=== PATIENT | female | born 1980 | race Caucasian/White ===

== ENCOUNTER 2016-08-26 20:43 | Emergency (ER) | payer SELFPAY ==
[~2016-08-26] VITALS: Ht 162.6 cm; Wt 65.8 kg
[~2016-08-26 20:43] MED LIST: CIPR500T94 PO; CLON0.2T PO; CODE1CAP19 PO; CYCL10TA2 PO; DICY20TA30 PO; DOCU-27 PO; ONDA4TAB7 PO; OXCA600T3 PO; POLY17PO5 PO; PRAZ2CAP2 PO; PROM25TA10 PO
[2016-08-26] MEDS ORDERED: IV NORMAL SALINE 1000ML BAG 1,000 ML IV SCH (21:29)
--- NOTE | 2016-08-26 21:36 | PHYS DOC ---
Past Medical History Past Medical History: Bipolar, Migraines Additional Past Medical Histor: endometriosis,E-COLI,BORDERLINE DM; PAST IV DRUG ABUSE Past Surgical History: No Surgical History Additional Past Surgical Histo: SEVERAL LAPAROSCOPIES FROM EDOMETRIOSIS Alcohol Use: Occasionally Drug Use: None Adult General Chief Complaint Chief Complaint: HEADACHE HPI HPI Patient is a 36 year old female who presents with complaint of headache, nausea , and body aches. Patient states that her symptoms started earlier today with a headache which is consistent with previous headaches associated with migraine. Patient states that she currently is taking Fioricet at home as outpatient to help control her headaches, however she states that this has not been keeping her headaches under good control. The patient states that earlier today she went to a restaurant where she consumed half of a Ryann and ate dinner. Patient states shortly after she started getting nausea, chills, and body aches. Patient states that these symptoms are not typical of her migraine headaches. The patient denies any unilateral symptoms, difficulty with speech or swallowing, or loss of vision. Patient states that she feels febrile. Patient took ibuprofen prior to arrival in the emergency department with minimal improvement in her headache. Patient rates her pain as 10 out of 10. Review of Systems Review of Systems Constitutional: Subjective fever, chills [] Eyes: Denies change in visual acuity, redness, or eye pain [] HENT: Denies nasal congestion or sore throat [] Respiratory: Denies cough or shortness of breath [] Cardiovascular: Denies chest pain or edema [] GI: Nausea, denies abdominal pain, vomiting, bloody stools or diarrhea [] : Denies dysuria or hematuria [] Musculoskeletal: Body aches, Denies back pain or joint pain [] Integument: Denies rash or skin lesions [] Neurologic: Headache, denies focal weakness or sensory changes [] Endocrine: Denies polyuria or polydipsia [] Current Medications Current Medications Current Medications Medications (Trade) Dose Ordered Sig/Melinda Start Time Stop Time Status Last Admin Dose Admin Diphenhydramine HCl (Benadryl) 25 mg 1X ONCE 08/26/16 21:45 08/26/16 21:46 DC 08/26/16 21:57 25 MG Ketorolac Tromethamine (Toradol) 30 mg 1X ONCE 08/26/16 21:45 08/26/16 21:46 DC 08/26/16 21:58 30 MG Oxcarbazepine (Trileptal) 600 mg 1X ONCE 08/26/16 22:30 08/26/16 22:31 DC 08/26/16 22:27 600 MG Prochlorperazine Edisylate (Compazine) 10 mg 1X ONCE 08/26/16 21:45 08/26/16 21:46 DC 08/26/16 21:57 10 MG Sodium Chloride (Iv Sodium Chloride 0.9% 1000ml Bag) 1,000 ml @ 1,000 mls/hr Q1H 08/26/16 21:29 08/26/16 22:28 DC 08/26/16 21:58 1,000 MLS/HR Allergies Allergies Allergies Coded Allergies Type Severity Reaction Last Updated Verified Iodine and Iodide Containing Produc Allergy Intermediate hives 03/14/16 Yes Penicillins Allergy Intermediate 03/14/16 Yes shellfish derived Allergy Intermediate hives 03/14/16 Yes sulfamethoxazole Allergy Intermediate 03/14/16 Yes trimethoprim Allergy Intermediate 03/14/16 Yes Physical Exam Physical Exam Constitutional: Well developed, well nourished, no acute distress, non-toxic appearance. [] HENT: Normocephalic, atraumatic, bilateral external ears normal, oropharynx moist, no oral exudates, nose normal. [] Eyes: PERRLA, EOMI, conjunctiva normal, no discharge. [] Neck: Normal range of motion, no tenderness, supple, no stridor. [] Cardiovascular:Heart rate regular rhythm, no murmur [] Lungs & Thorax: Bilateral breath sounds clear to auscultation [] Abdomen: Bowel sounds normal, soft, no tenderness, no masses, no pulsatile masses. [] Skin: Warm, dry, no erythema, no rash. [] Back: No tenderness, no CVA tenderness. [] Extremities: No tenderness, no cyanosis, no clubbing, ROM intact, no edema. [] Neurologic: Alert and oriented X 3, normal motor function, normal sensory function, no focal deficits noted. [] Psychologic: Affect normal, judgement normal, mood normal. [] Current Patient Data Vital Signs Vital Signs Date Time Temp Pulse Resp B/P Pulse Ox O2 Delivery O2 Flow Rate FiO2 08/26/16 21:03 98.7 93 16 125/72 99 Room Air 98.7 Lab Values Laboratory Tests Test 08/26/16 20:55 08/26/16 21:52 Urine Collection Type Unknown Urine Color Yellow Urine Clarity Clear Urine pH 6.0 Urine Specific [place] 1.020 Urine Protein Negativemg/dL (NEG-TRACE) Urine Glucose (UA) Negativemg/dL (NEG) Urine Ketones (Stick) Tracemg/dL (NEG) Urine Blood Negative (NEG) Urine Nitrite Negative (NEG) Urine Bilirubin Negative (NEG) Urine Urobilinogen Dipstick 0.2mg/dL (0.2 mg/dL) Urine Leukocyte Esterase Negative (NEG) Urine RBC 0/HPF (0-2) Urine WBC Occ/HPF (0-4) Urine Squamous Epithelial Cells Few/LPF Urine Bacteria 0/HPF (0-FEW) Urine Mucus Slight/LPF Urine Test Negative (NEG) White Blood Count 8.4x10^3/uL (4.0-11.0) Red Blood Count 3.71x10^6/uL (3.50-5.40) Hemoglobin 12.0g/dL (12.0-15.5) Hematocrit 34.2% (36.0-47.0) L Mean Corpuscular Volume 92fL (79-100) Mean Corpuscular Hemoglobin 32pg (25-35) Mean Corpuscular Hemoglobin Concent 35g/dL (31-37) Red Cell Distribution Width 13.1% (11.5-14.5) Platelet Count 251x10^3/uL (140-400) Neutrophils (%) (Auto) 47% (31-73) Lymphocytes (%) (Auto) 43% (24-48) Monocytes (%) (Auto) 5% (0-9) Eosinophils (%) (Auto) 4% (0-3) H Basophils (%) (Auto) 1% (0-3) Neutrophils # (Auto) 4.0x10^3uL (1.8-7.7) Lymphocytes # (Auto) 3.6x10^3/uL (1.0-4.8) Monocytes # (Auto) 0.5x10^3/uL (0.0-1.1) Eosinophils # (Auto) 0.3x10^3/uL (0.0-0.7) Basophils # (Auto) 0.1x10^3/uL (0.0-0.2) Sodium Level 134mmol/L (136-145) L Potassium Level 3.8mmol/L (3.5-5.1) Chloride Level 100mmol/L (98-107) Carbon Dioxide Level 22mmol/L (21-32) Anion Gap 12 (6-14) Blood Urea Nitrogen 14mg/dL (7-20) Creatinine 0.7mg/dL (0.6-1.0) Estimated GFR (Cockcroft-Gault) 94.2 Glucose Level 117mg/dL (70-99) H Calcium Level 7.9mg/dL (8.5-10.1) L Magnesium Level 1.8mg/dL (1.8-2.4) Influenza Type A Antigen Negative (NEGATIVE) Influenza Type B Antigen Negative (NEGATIVE) Laboratory Tests 08/26/16 21:52 Laboratory Tests 08/26/16 21:52 EKG EKG Not performed [] Radiology/Procedures Radiology/Procedures Not performed [] Course & Med Decision Making Course & Med Decision Making Pertinent Labs and Imaging studies reviewed. (See chart for details) Patient was given IV Toradol, Compazine, Benadryl, and IV fluids. On reevaluation, patient states that her symptoms are improving at this time. The patient's symptoms are likely the result of migraine headache. The patient's additional symptoms are not consistent with migraine may be due to an unspecified viral illness versus possible adverse effect of alcohol intake. Patient's vital signs are stable and patient states that she feels better and would like to go home. Recommended that the patient follow-up in the next 2-3 days with her primary doctor and return to emergency department for any worsening symptoms. Patient voiced understanding and in agreement with treatment plan. Dragon Disclaimer Dragon Disclaimer This electronic medical record was generated, in whole or in part, using a voice recognition dictation system. Departure Departure Impression: Primary Impression: Migraine headache Additional Impressions: Nausea Body aches Disposition: 01 HOME, SELF-CARE Condition: IMPROVED Referrals: FLY HERNANDEZ MD (PCP) Patient Instructions: Migraine Headache Additional Instructions: Follow-up with your primary doctor in 2-3 days. Return to the emergency department for any worsening symptoms. Problem Qualifiers Primary Impression: Migraine headache Migraine type: unspecified Status migrainosus presence: without status migrainosus Intractability: not intractable Qualified Code: G43.909 - Migraine, unspecified, not intractable, without status migrainosus LEANNE CLEMENTE MD Aug 26, 2016 21:36
[2016-08-26 21:37] LABS: NEG OBC UR NEG; POS OBC UR POS
[2016-08-26 21:40] LABS: BILIRUBIN,URINE NEGATIVE (NEG); GLUCOSE,URINE NEGATIVE (NEG); NITRITE,URINE NEGATIVE (NEG); PROTEIN,URINE NEGATIVE (NEG-TRACE); UROBILINOGEN,URINE 0.2 mg/dL (0.2 mg/dL)
[2016-08-26] MEDS ORDERED: DIPHENHYDRAMINE 50 MG/ML VIAL IVP ONE (21:45)
[2016-08-26] MEDS ORDERED: PROCHLORPERAZINE 10 MG/2 ML VIAL. IV ONE (21:45)
[2016-08-26] MEDS ORDERED: KETOROLAC TROMETHAMINE 30 MG/ML SYRINGE. IV ONE (21:45)
[2016-08-26 21:53] LABS: BACTERIA,URINE 0 /HPF (0-FEW); RBC,URINE 0 /HPF (0-2); SQUAMOUS EPITHELIAL CELL,UR FEW /LPF; WBC,URINE OCC /HPF (0-4)
[2016-08-26 22:06] LABS: BASO # 0.1 x10^3/uL (0.0-0.2); BASO % 1 % (0-3); EOS % 4 % (0-3); HEMATOCRIT 34.2 % (36.0-47.0); LYMPH # 3.6 x10^3/uL (1.0-4.8); LYMPH % 43 % (24-48); MEAN CORPUSCULAR HEMOGLOBIN 32 pg (25-35); MEAN CORPUSCULAR HGB CONC 35 g/dL (31-37); MEAN CORPUSCULAR VOLUME 92 fL (79-100); MONO % 5 % (0-9); NEUT % 47 % (31-73); PLATELET COUNT 251 x10^3/uL (140-400); RED BLOOD COUNT 3.71 x10^6/uL (3.50-5.40); RED CELL DISTRIBUTION WIDTH 13.1 % (11.5-14.5); WHITE BLOOD COUNT 8.4 x10^3/uL (4.0-11.0)
[2016-08-26 22:19] LABS: CALCIUM 7.9 mg/dL (8.5-10.1); CREATININE 0.7 mg/dL (0.6-1.0); GFR 94.2; MAGNESIUM 1.8 mg/dL (1.8-2.4); POTASSIUM 3.8 mmol/L (3.5-5.1)
[2016-08-26] MEDS ORDERED: OXCARBAZEPINE 300 MG TABLET. PO ONE (22:30)
[2016-08-26 22:31] LABS: OBC FLU VALID
[2016-08-26 23:30] VITALS: BP 100/58
== END 2016-08-26 23:43 | disposition home or self-care (01) ==
LOC: ER 20:43
DX: G43.909 Migraine, unspecified, not intractable, without status migrainosus (principal); M79.1 Myalgia; E11.9 Type 2 diabetes mellitus without complications; R50.9 Fever, unspecified; F19.10 Other psychoactive substance abuse, uncomplicated; Z88.0 Allergy status to penicillin; Z88.2 Allergy status to sulfonamides; Z91.013 Allergy to seafood; Z91.041 Radiographic dye allergy status
CPT/HCPCS: 36415; 80048; 81001; 81025; 83735; 85027; 87804; 96361; 96374; 96375; 99285; J0780; J1200; J1885; J7030

== ENCOUNTER 2016-12-06 01:26 | Emergency (ER) | payer SELFPAY ==
[~2016-12-06] VITALS: Ht 162.6 cm; Wt 68.0 kg
[~2016-12-06 01:26] MED LIST changes: +POLY17PO29 PO; -POLY17PO5 PO
[2016-12-06] MEDS ORDERED: DIAZ5TAB PO (01:55)
--- NOTE | 2016-12-06 01:56 | PHYS DOC ---
Past Medical History Past Medical History: Bipolar, Migraines Additional Past Medical Histor: endometriosis,E-COLI,BORDERLINE DM; PAST IV DRUG ABUSE Past Surgical History: No Surgical History Additional Past Surgical Histo: SEVERAL LAPAROSCOPIES FROM EDOMETRIOSIS Alcohol Use: Occasionally Drug Use: None Adult General Chief Complaint Chief Complaint: ALLERGIC REACTION HPI HPI Patient is a 36 year old female who presents with complaint of hives. Patient states that her symptoms have been present for the past 1-1/2 weeks. Patient states that she has had episodes similar in the past which has been attributed to stress. Patient states that she has recently lost her mother and has been having a significant amount of stress over the last few weeks. Patient states that she has been getting significant itching and hives along her chest, neck, arms, legs, and groin. Patient denies any difficulty with breathing or shortness of breath associated with her symptoms. Patient denies fever. Patient has taken multiple medications for her symptoms with no relief including multiple antihistamines, prednisone, Ativan. Patient denies nausea or abdominal pain. Patient came to the emergency department to help with relief of symptoms. Review of Systems Review of Systems Constitutional: Denies fever or chills [] HENT: Denies nasal congestion or sore throat [] Respiratory: Denies cough or shortness of breath [] Cardiovascular: Denies chest pain or edema [] GI: Denies abdominal pain, nausea, vomiting, bloody stools or diarrhea [] Musculoskeletal: Denies back pain or joint pain [] Integument: Hives [] Neurologic: Denies headache, focal weakness or sensory changes [] Current Medications Current Medications Current Medications Medications (Trade) Dose Ordered Sig/Melinda Start Time Stop Time Status Last Admin Dose Admin Dexamethasone Sodium Phosphate (Decadron) 12 mg 1X ONCE 12/06/16 02:15 12/06/16 02:16 12/06/16 02:02 12 MG Diazepam (Valium) 5 mg 1X ONCE 12/06/16 02:15 12/06/16 02:16 12/06/16 02:03 5 MG Allergies Allergies Allergies Coded Allergies Type Severity Reaction Last Updated Verified Iodine and Iodide Containing Produc Allergy Intermediate hives 03/14/16 Yes Penicillins Allergy Intermediate 03/14/16 Yes shellfish derived Allergy Intermediate hives 03/14/16 Yes sulfamethoxazole Allergy Intermediate 03/14/16 Yes trimethoprim Allergy Intermediate 03/14/16 Yes Physical Exam Physical Exam Constitutional: Alert, afebrile, appears in mild discomfort. [] HENT: Normocephalic, atraumatic, bilateral external ears normal, oropharynx moist, no oral exudates, nose normal. [] Neck: Normal range of motion, no tenderness, supple, no stridor. [] Cardiovascular:Heart rate regular rhythm, no murmur [] Lungs & Thorax: Bilateral breath sounds clear to auscultation [] Abdomen: Bowel sounds normal, soft, no tenderness, no masses, no pulsatile masses. [] Skin: Warm, dry, urticarial lesions across her chest, bilateral forearms and hands, waist, back, and neck. [] Back: No tenderness, no CVA tenderness. [] Extremities: No tenderness, no cyanosis, no clubbing, ROM intact, no edema. [] Neurologic: Alert and oriented X 3, normal motor function, normal sensory function, no focal deficits noted. [] Current Patient Data Vital Signs Vital Signs Date Time Temp Pulse Resp B/P Pulse Ox O2 Delivery O2 Flow Rate FiO2 12/06/16 02:04 98.3 72 20 98 Room Air 98.3 EKG EKG Not performed [] Radiology/Procedures Radiology/Procedures Not performed [] Course & Med Decision Making Course & Med Decision Making Pertinent Labs and Imaging studies reviewed. (See chart for details) Patient was given Decadron and Valium in the emergency department. Spoke with patient regarding patient's triggers which she believes are due to stress. Spoke with patient regarding coping skills and importance of follow-up with primary doctor and with her support group which she states that she attends regularly. Advised return emergency department for any worsening symptoms. Recommended follow-up with primary doctor in 3-5 days. Patient voiced understanding and in agreement with treatment plan. Dragon Disclaimer Dragon Disclaimer This electronic medical record was generated, in whole or in part, using a voice recognition dictation system. Departure Departure Impression: Primary Impression: Urticaria Disposition: HOME, SELF-CARE Condition: IMPROVED Referrals: FLY HERNANDEZ MD (PCP) Patient Instructions: Hives, Stress Management Additional Instructions: Follow-up to primary doctor in 3-5 days. Return to the emergency department for any worsening symptoms. Scripts Diazepam (Valium)5 Mg Tablet5 Mg PO BID PRN ANXIETY / AGITATION #30 TAB Prov:LEANNE CLEMENTE MD 12/06/16 LEANNE CLEMENTE MD Dec 06, 2016 01:55
[2016-12-06 02:04] VITALS: BP 122/69
[2016-12-06] MEDS ORDERED: DEXAMETHASONE SOD PHOS 20 MG/5 ML VIAL. IM ONE (02:15)
[2016-12-06] MEDS ORDERED: diazePAM 5 MG TABLET PO ONE (02:15)
== END 2016-12-06 02:10 | disposition home or self-care (01) ==
LOC: ER 01:26
DX: L50.9 Urticaria, unspecified (principal); F43.9 Reaction to severe stress, unspecified; F31.9 Bipolar disorder, unspecified; G43.909 Migraine, unspecified, not intractable, without status migrainosus; Z88.0 Allergy status to penicillin; Z88.2 Allergy status to sulfonamides; Z88.8 Allergy status to other drugs, medicaments and biological substances; Z88.1 Allergy status to other antibiotic agents; Z91.013 Allergy to seafood
CPT/HCPCS: 99283; J1100

== ENCOUNTER 2017-08-26 07:20 | Emergency (ER) | payer OTHER ==
[2017-08-26 08:08] LABS: INFLUENZA A PATIENT NEGATIVE (NEGATIVE); INFLUENZA B PATIENT NEGATIVE (NEGATIVE); OBC FLU VALID
[2017-08-26] MEDS: ALPRAZolam 0.25 MG TABLET PO (08:17)
== END 2017-08-26 08:33 | disposition home or self-care (01) ==
LOC: ER 07:20
DX: R19.7 Diarrhea, unspecified (principal); R11.0 Nausea; F41.9 Anxiety disorder, unspecified; F31.9 Bipolar disorder, unspecified; G43.909 Migraine, unspecified, not intractable, without status migrainosus; Z88.0 Allergy status to penicillin; Z88.2 Allergy status to sulfonamides; Z91.041 Radiographic dye allergy status; Z91.013 Allergy to seafood; Z88.1 Allergy status to other antibiotic agents
CPT/HCPCS: 87804; 87804-59; 99284